=== PATIENT | female | born 1990 | race Two or more races ===

== ENCOUNTER 2023-01-19 16:24 | Emergency (ER) | payer OTHER ==
[~2023-01-19] VITALS: Ht 162.6 cm; Wt 64.9 kg
== END 2023-01-19 22:42 | disposition home or self-care (01) ==
LOC: ER 16:24
DX: S90.111A Contusion of right great toe without damage to nail, initial encounter (principal); W22.8XXA Striking against or struck by other objects, initial encounter; Y93.9 Activity, unspecified; Y92.9 Unspecified place or not applicable; Y99.9 Unspecified external cause status

== ENCOUNTER 2023-01-27 06:00 | Emergency (ER) | payer OTHER ==
[~2023-01-27] VITALS: Ht 162.6 cm; Wt 65.8 kg
== END 2023-01-27 09:43 | disposition home or self-care (01) ==
LOC: ER 06:00
DX: L03.115 Cellulitis of right lower limb (principal)